=== PATIENT | female | born 1980 ===

== ENCOUNTER → 2020-12-17 | Outpatient (CLI) | payer BC ==
[~2020-12-17] MED LIST: CETI10TA17 PO; CODE-54 PO; DCS100C PO; FERR325C PO; Ibuprofen PO; PREN1TAB71 PO
--- NOTE | 2020-12-18 08:52 | Diagnostic Imaging Report ---
INDICATION: Routine screening. No prior studies are available for comparison. 2-D and 3-D bilateral screening mammography was performed with CAD. Both breasts are heterogeneously dense, limiting the sensitivity of mammography. There are occasional benign calcifications in both breasts. No mass or malignant-appearing microcalcifications are seen. Axillae are unremarkable. IMPRESSION: BI-RADS Category 2 No mammographic features suspicious for malignancy are identified. ACR BI-RADS Category 2: Benign findings. Result letter will be mailed to the patient. Note: At least 10% of breast cancer is not imaged by mammography. Dictated by: Dictated on workstation # [id number]
== END ==
LOC: RAD 15:45
PROVIDERS: ATTEND Obstetrics & Gynecology
DX: Z12.31 Encounter for screening mammogram for malignant neoplasm of breast (principal)
CPT/HCPCS: 77063; 77067

== ENCOUNTER → 2021-01-19 | Outpatient (CLI) | payer BC ==
--- NOTE | 2021-01-19 09:28 | Diagnostic Imaging Report ---
PROCEDURE: US Thyroid. TECHNIQUE: Multiple Real-time grayscale images were obtained of the thyroid in various projections. INDICATION: Hypothyroidism. FINDINGS: The right lobe measures 6.2 x 1.8 x 3.2 cm. The left lobe measures 6.4 x 1.7 x 2.9 cm. The isthmus is 4 mm. There is a heterogeneous appearance. There are several spongiform and cystic lesions noted bilaterally. There is a heterogeneous hypoechoic oval well-circumscribed nodule in the lower portion of the right lobe measuring 1.1 x 0.9 x 0.6 cm. There is no associated calcification. The left lobe shows a cystic lesion in the midportion measuring 1.8 x 1.5 x 0.9 cm which does show some mural nodularity. No definite calcification. IMPRESSION: Bilateral complex solid and cystic nodules as described. These are considered mildly suspicious. TI-RADS 3 Dictated by: Dictated on workstation # [id number]
== END ==
LOC: RAD 08:30
PROVIDERS: ATTEND Internal Medicine Endocrinology, Diabetes & Metabolism
DX: E04.2 Nontoxic multinodular goiter (principal); E03.8 Other specified hypothyroidism; R19.7 Diarrhea, unspecified; R53.83 Other fatigue; R63.5 Abnormal weight gain
CPT/HCPCS: 76536

== ENCOUNTER 2022-11-23 22:31 | Emergency (ER) | payer OTHER ==
[~2022-11-23] VITALS: Ht 175 cm; Wt 112.5 kg
--- NOTE | 2022-11-23 23:06 | ED Headache ---
General Chief Complaint: Head/Cervical Problems Stated Complaint: HEADACHE, NAUSEA, NUMBNESS IN LEGS, Source: patient Exam Limitations: no limitations History of Present Illness Date Seen by Provider: Nov 23, 2022 Time Seen by Provider: 23:06 Initial Comments Patient is a 42yo female with a complaint of left sided headache/migraine. MILLIGAN started earlier today while she was starting dinner for the family. Has had a development of "migraines" since about Feb of this year. She has recently been given a prescription of Imitrex and did take a dose earlier in the evening. It caused her to feel some "tingling and heaviness" in her legs. She states she did nap about 2 hours and when she woke after the intensity was a "11". MILLIGAN was not "thunderclap" in onset. No family history of SAH. She is nauseated with the MILLIGAN. SHe states light makes it worse and occ laying flat makes it worse. She also states the headaches seem to be triggered by the onset of menses. She took tylen ol x2 this evening without relief. She states it is minimally better at presentation and rates it an "8" currenlty. Denies vision changes, balance issues, unilateral numbness, weakness. No speech issues. She takes thyroid medications only. Timing/Duration: 4-6 hours Severity/Quality: severe, sharp, throbbing ("like a heartbeat") Location: other (left temporal) Prior Headaches/Recent Trauma: other (new onset headaches since about Feb 2022) Modifying Factors: worse with exposure to light; improves with other (laying supine) Associated Symptoms: nausea/vomiting (nausea without vomiting), numbness in legs/feet ((after taking imitrex earlier)) Allergies and Home Medications Allergies Coded Allergies: guaifenesin (Unverified Allergy, Mild, throat swells, 12/07/13) Penicillins (Unverified Allergy, Unknown, 12/13/13) Patient Home Medication List Home Medication List Reviewed: Yes Acetaminophen/Codeine (Tylenol W/Codeine #3 Tablet) 1 Tab Tablet, 1-2 TAB PO Q4H PRN for MODERATE TO SEVERE PAIN Prescribed by: MEREDITH STRAUSS on 12/15/13 1207 Cetirizine Hcl (Cetirizine Hcl) 10 Mg Tablet, 10 MG PO DAILY, (Reported) Entered as Reported by: SHARMILA CEDILLO on 12/07/13 1243 Docusate Sodium (Colace Capsule) 100 Mg Cap, 100 MG PO DAILY, (Reported) Entered as Reported by: SHARMILA CEDILLO on 12/07/13 1242 Ferrous Sulfate (Iron) 325 ( 65 )Mg Capsule.sa, 325 ( PO DAILY, (Reported) Entered as Reported by: SHARMILA CEDILLO on 12/07/13 1243 Vit/Fe Fumarate/Fa ( Vitamin Tablet) 1 Each Tablet, 1 EACH PO DAILY, (Reported) Entered as Reported by: SHARMILA CEDILLO on 12/07/13 1242 [Ibuprofen] 600 MG TAB, 600 MG PO Q6H Prescribed by: MEREDITH STRAUSS on 12/15/13 1207 Review of Systems Review of Systems Constitutional: see HPI Eyes: No Symptoms Reported Ears, Nose, Mouth, Throat: nose discharge (mild nasal congestion) Respiratory: no symptoms reported Cardiovascular: no symptoms reported Gastrointestinal: nausea Genitourinary: no symptoms reported Musculoskeletal: no symptoms reported Skin: no symptoms reported Psychiatric/Neurological: Anxiety, Headache, Paresthesia (bilateral LE) All Other Systems Reviewed Negative Unless Noted: Yes Past Kitofrz-Zqsaqm-Bnpacz Hx Immunizations Up To Date Tetanus Booster (TDap): Less than 5yrs Past Medical History Reproductive Disorders: No Adverse Reaction/Blood Tranf: No Family Medical History Arthritis (MOTHER) Cardiovascular disease (PGF) FH: blood disorder (MGF) FH: melanoma (MGF) FH: stroke (MOTHER) Hypercholesterolemia (FATHER) Hypertension (PARENTS) Kidney disease (PGM) Myocardial infarction (PGF) Osteoporosis (MGF) Physical Exam Vital Signs Vital Signs - First Documented 11/23/22 23:02 Temp 37.0 Pulse 66 Resp 18 B/P (MAP) 179/87 (117) Pulse Ox 99 O2 Delivery Room Air Capillary Refill : Height, Weight, BMI Height: 5'9.50" Weight: 268lbs. oz. 121.806508ah; BMI Method: General Appearance: WD/WN, no apparent distress, obese HEENT: PERRL/EOMI, pharynx normal Neck: full range of motion, supple Cardiovascular: regular rate, rhythm Respiratory: lungs clear, normal breath sounds Gastrointestinal: non tender, soft Extremities: normal range of motion, non-tender, normal inspection, no pedal edema Psychiatric: alert, oriented x 3 Crainal Nerves: normal hearing, normal speech, PERRL; No abnormal eye position, No abnormal speech, No facial asymmetry, No facial paresthesias, No gaze palsy, No tongue deviation to R, No tongue deviation to L Coordination/Gait: normal gait, negative Romberg's sign Motor/Sensory: no motor deficit, no sensory deficit, no pronator drift Skin: normal color, warm/dry Progress/Results/Core Measures Results/Orders My Orders Orders - JOE FOLEY MD Ct Head Wo (11/23/22 23:21) Urine Bedside (11/23/22 23:21) Ns Iv 500 Ml (Ns Iv 500 Ml) (11/23/22 23:21) Ketorolac Injection (Ketorolac Injection (11/23/22 23:30) Prochlorperazine Injection (Prochlorpera (11/23/22 23:30) Diphenhydramine Injection (Diphenhydram (11/23/22 23:30) Medications Given in ED Current Medications Medications Dose Ordered Sig/Antonieta Route Start Time Stop Time Status Last Admin Dose Admin Diphenhydramine HCl 25 mg ONCE ONCE IVP 11/23/22 23:30 11/23/22 23:31 DC 11/23/22 23:37 25 MG Ketorolac Tromethamine 15 mg ONCE ONCE IVP 11/23/22 23:30 11/23/22 23:31 DC 11/23/22 23:39 15 MG Prochlorperazine Edisylate 5 mg ONCE ONCE IV 11/23/22 23:30 11/23/22 23:31 DC 11/23/22 23:40 5 MG Vital Signs/I&O 11/23/22 11/24/22 23:02 00:36 Temp 37.0 Pulse 66 54 Resp 18 20 B/P (MAP) 179/87 (117) 112/72 Pulse Ox 99 95 O2 Delivery Room Air Room Air Progress Progress Note : Time: 00:30 Progress Note Patient seen and evaluated by me. Evaluation today includes physical exam, urine preg test and CT head without contrast. Pertinent physical exam findings include WDWN female in mild distress due to MILLIGAN. HEENT exam WNL. Heart is reg, lungs clear. Abd benign. Neuro exam non focal - normal heel to carey, neg Romberg, no drift, no motor or sensory disturbance. She does have elevated BP on arrival - Sys 180. ddx inclludes migraine, SAH, brain tumor Patient treated in the ED with Toradol 15mg, Compazine 5mg, Benadryl 25mg IV and 500ml NS. Her preg is negative and CT head per radiologist shows no acute findings. With her relatively new "migraine" type headaches and no prior imaging I felt that imaging was warranted. With a normal neuro exam and neg CT brain without contrast I am quite confident there is no acute intracranial abnormality and do not feel the need for further imaging with MRi is needed. Low clinical suspicion for SAH as well with h/p. SHe has not had persistent vomiting or diarrhea - labs would not be indicated. She had complete relief of her headache with the above mentioned medications. I encouraged follow up with her PCP and advised her to ask for different headache medication as the side effects of the imitrex were not tolerable. PAtient's BP came down quite nicely with the pain management. She is improved at discharge. Diagnostic Imaging Diagonstic Imaging: CT Comments CT head per Stat Rad - no acute findings Departure Impression Primary Impression: Migraine Qualified Codes: G43.829 - Menstrual migraine, not intractable, without status migrainosus Disposition: HOME, SELF-CARE Condition: Improved Departure-Patient Inst. Decision time for Depature: 00:28 Referrals: GERONIMO STEINBERG MD (PCP/Family) Primary Care Physician Patient Instructions: Migraines in adults Add. Discharge Instructions: Consider keeping a migraine "journal" to help identify triggers. Drink plenty of fluids to stay well hydrated. Follow up with your primary care physician. Return to the Emergency Department for any new, concerning or emergent complaints. Copy Copies To 1: GERONIMO STEINBERG MD, KATHRYN M MD Nov 23, 2022 23:06
[2022-11-23] MEDS ORDERED: NS IV 500 ML 500 ML IV STA (23:21)
[2022-11-23] MEDS ORDERED: diphenhydrAMINE INJ 50 MG/ML VIAL IVP ONE (23:30)
[2022-11-23] MEDS ORDERED: KETOROLAC INJ 15 MG/ML VIAL IVP ONE (23:30)
[2022-11-23] MEDS ORDERED: PROCHLORPERAZINE INJ 10 MG/2ML VIAL IV ONE (23:30)
[2022-11-24 00:36] VITALS: BP 112/72
--- NOTE | 2022-11-24 07:20 | Diagnostic Imaging Report ---
EXAMINATION: CT head without contrast. TECHNIQUE: Multiple contiguous axial images were obtained through the brain without the use of intravenous contrast. All CT scans use one or more of the following dose optimizing techniques: automated exposure control, MA and/or KvP adjustment based on patient size and exam type or iterative reconstruction. HISTORY: Left-sided headache. Nausea. COMPARISON: None available. FINDINGS: No large acute territorial ischemia, mass, or hemorrhage. No midline shift or mass effect. The ventricles, cortical sulci, and basilar cisterns are patent and unremarkable. The orbits are normal. Retained secretions are seen in the anterior right ethmoid sinuses. Mastoid air cells are clear. No soft tissue abnormality is seen. No osseus lesions or fractures are seen. IMPRESSION: 1. No large acute territorial ischemia, mass, or hemorrhage. 2. Paranasal sinus disease involving the right anterior ethmoid sinuses. Agree with overnight report. Dictated by: Dictated on workstation # [id number]
== END 2022-11-24 00:37 | disposition home or self-care (01) ==
LOC: EDUNIT# 22:31 → ER 22:36
DX: G43.909 Migraine, unspecified, not intractable, without status migrainosus (principal)
CPT/HCPCS: 70450; 84703

== ENCOUNTER → 2022-12-29 | Outpatient (CLI) | payer OTHER ==
--- NOTE | 2022-12-29 14:17 | Diagnostic Imaging Report ---
EXAMINATION: 3D bilateral screening mammogram with CAD. INDICATION: Screening. COMPARISON: This study was compared to the prior exam of 12/17/2020. PERSONAL HISTORY: At this time, there are no current complaints. FINDINGS: There are scattered fibroglandular densities in both breasts which could obscure a lesion. No primary or secondary sign of malignancy is noted. IMPRESSION: 1. There is no evidence for malignancy. 2. The patient should have her annual bilateral screening mammogram on schedule in December 2023. ACR BI-RADS Category 1: Negative. Result letter will be mailed to the patient. Note: At least 10% of breast cancer is not imaged by mammography. Dictated by: Dictated on workstation # [id number]
== END ==
LOC: RAD 08:03
PROVIDERS: ATTEND Obstetrics & Gynecology
DX: Z12.31 Encounter for screening mammogram for malignant neoplasm of breast (principal)
CPT/HCPCS: 77063; 77067